=== PATIENT | male | born 1965 | race Caucasian/White ===

== ENCOUNTER 2019-12-28 10:39 | Emergency (ER) | payer SELFPAY ==
[2019-12-28] MEDS ORDERED: Bacitracin Oint 1 GM U/D Packet TOP ONE (10:42)
[2019-12-28] MEDS ORDERED: Diphtheria,Pertussis(Acell),Tetanus Vaccine 0.5 ML Syringe IM ONE (10:42)
--- NOTE | 2019-12-28 10:52 | EDM.PDOC ---
ED HPI GENERAL MEDICAL PROBLEM - General Chief Complaint: Laceration Stated Complaint: CUT ON L HAND Time Seen by Provider: 12/28/19 10:41 Source of Information: Reports: Patient History Limitations: Reports: No Limitations - History of Present Illness INITIAL COMMENTS - FREE TEXT/NARRATIVE: HISTORY AND PHYSICAL: History of present illness: Patient is a 54-year-old male who presents to the emergency room with complaints of a laceration to the left palm near the base of his thumb. He states he was using a knife when it slipped resulting in the laceration. 3 days ago he did have another laceration which he glued that is near the base of his fifth digit. He is unsure of his last tetanus update. Offers no systemic complaints. Review of systems: As per history of present illness and below otherwise all systems reviewed and negative. Past medical history: As per history of present illness and as reviewed below otherwise noncontributory. Surgical history: As per history of present illness and as reviewed below otherwise noncontributory. Social history: See social history for further information Family history: As per history of present illness and as reviewed below otherwise noncontributory. Physical exam: General: Well-developed and well-nourished 54-year-old male. Alert and oriented. Nontoxic-appearing and in no acute distress. HEENT: Atraumatic, normocephalic, pupils equal and reactive bilaterally, negative for conjunctival pallor or scleral icterus, mucous membranes moist, TMs normal bilaterally, throat clear, neck supple, nontender, trachea midline. No drooling or trismus noted. No meningeal signs. No hot potato voice noted. Lungs: Clear to auscultation, breath sounds equal bilaterally, chest nontender. Heart: S1S2, regular rate and rhythm without overt murmur Abdomen: Soft, nondistended, nontender. Skin: 2cm "C" shaped laceration to left palm near base of thumb. Otherwise remaining skin is intact, warm, dry. No lesions or rashes noted. Extremities: Atraumatic, moves all extremities per self without difficulty or deficits, negative for cords or calf pain. Neurovascular unremarkable. Neuro: Awake, alert, oriented. Cranial nerves II through XII unremarkable. Cerebellum unremarkable. Motor and sensory unremarkable throughout. Exam nonfocal. Notes: Area was thoroughly cleansed with chlorhexidine and irrigated with wound wash. 1% lidocaine was used to anesthetize the area. 4-0 nylon, #5 interrupted sutures were placed. Tetanus has been updated. Nonstick dressing applied. Supportive care measures were reviewed and discussed. Voices understanding and is agreeable to plan of care. Denies any further questions or concerns at this time. Diagnostics: None Therapeutics: Lidocaine, Bacitracin, Tdap Prescription: None Impression: Laceration Plan: 1. Keep the area clean and dry. Continue to monitor for signs of infection. Sutures to be removed in 7-10 days. 2. Tylenol and/or ibuprofen as needed for pain management. 3. Please follow-up with your primary care provider in the next 1-2 days. Return to the ED as needed and as discussed. Definitive disposition and diagnosis as appropriate pending reevaluation and r lianneiew of above. Left Hand Pain Score (Numeric/FACES): 2 - Related Data Allergies Allergy/AdvReac Type Severity Reaction Status Date / Time No Known Allergies Allergy Verified 12/28/19 10:45 Home Meds: Home Meds . [No Known Home Meds] 12/28/19 [History] ED ROS GENERAL - Review of Systems Review Of Systems: Comprehensive ROS is negative, except as noted in HPI. ED EXAM, SKIN/RASH Exam: See Below (See dictation) ED SKIN PROCEDURES - Laceration/Wound Repair Left hand Appearance: Subcutaneous, Linear Distal NVT: Neuro & Vascular Intact, No Tendon Injury Anesthetic Type: Local Local Anesthesia - Lidocaine (Xylocaine): 1% Plain Local Anesthetic Volume: 4cc Skin Prep: Chlorhexidine (Hibiciens), Saline, Sterile Drape Saline Irrigation (cc's): 50 Exploration/Debridement/Repair: Wound Explored, In a Bloodless Field, Explored to Base, No Foreign Material Found Closed with: Sutures Lac/Wound length In cm: 2 Suture Size: 4-0 # of Sutures: 5 Suture Type: Nylon, Interrupted, Simple Drain Placement: No Sterile Dressing Applied: Provider Tetanus Status Addressed: Yes Complications: No Course - Vital Signs Last Recorded V/S: Last Vital Signs Temp 97.2 F 12/28/19 11:13 Pulse 104 H 12/28/19 11:13 Resp 17 12/28/19 11:13 BP 144/90 H 12/28/19 11:13 Pulse Ox 96 12/28/19 11:13 - Orders/Labs/Meds Orders: Active Orders 24 hr Category Date Time Status Vaccines to be Administered [RC] PER UNIT ROUTINE Care 12/28/19 10:42 Active Meds: Medications Discontinued Medications Generic Name Dose Route Start Last Admin Trade Name Gris PRN Reason Stop Dose Admin Bacitracin 1 dose 12/28/19 10:42 12/28/19 11:07 Bacitracin Oint 1 Gm TOP 12/28/19 10:43 1 dose ONETIME ONE Administration Diphtheria/Tetanus/Acell Pertussis 0.5 ml 12/28/19 10:42 12/28/19 11:07 Adacel IM 12/28/19 10:43 0.5 ml .ONCE ONE Administration Lidocaine HCl Confirm 12/28/19 10:47 12/28/19 10:56 Xylocaine-Mpf 1% Administered 12/28/19 10:48 5 ml Dose Administration 5 ml .ROUTE .STK-MED ONE Departure - Departure Time of Disposition: 14:08 Disposition: Home, Self-Care 01 Clinical Impression: Laceration - Discharge Information Instructions: Laceration Care, Adult, [id number] Referrals: PCP,None [Primary Care Provider] - Forms: ED Department Discharge Additional Instructions: The following information is given to patients seen in the emergency department who are being discharged to home. This information is to outline your options for follow-up care. We provide all patients seen in our emergency department with a follow-up referral. The need for follow-up, as well as the timing and circumstances, are variable depending upon the specifics of your emergency department visit. If you don't have a primary care physician on staff, we will provide you with a referral. We always advise you to contact your personal physician following an emergency department visit to inform them of the circumstance of the visit and for follow-up with them and/or the need for any referrals to a consulting specialist. The emergency department will also refer you to a specialist when appropriate. This referral assures that you have the opportunity for follow-up care with a specialist. All of these measure are taken in an effort to provide you with optimal care, which includes your follow-up. Under all circumstances we always encourage you to contact your private physician who remains a resource for coordinating your care. When calling for follow-up care, please make the office aware that this follow-up is from your recent emergency room visit. If for any reason you are refused follow-up, please contact the [facility] at and asked to speak to the emergency department charge nurse. [facility] [address] [place] [address] [facility] [address] [place] [id number] 1. Keep the area clean and dry. Continue to monitor for signs of infection. Sutures to be removed in 7-10 days. 2. Tylenol and/or ibuprofen as needed for pain management. 3. Please follow-up with your primary care provider in the next 1-2 days. Return to the ED as needed and as discussed. Sepsis Event Note (ED) - Focused Exam Vital Signs: Vital Signs Temp Pulse Resp BP Pulse Ox 12/28/19 11:13 97.2 F 104 H 17 144/90 H 96 12/28/19 10:42 97.5 F 103 H 18 135/76 96 - My Orders Last 24 Hours: My Active Orders 12/28/19 10:42 Vaccines to be Administered [RC] PER UNIT ROUTINE - Assessment/Plan Last 24 Hours: My Active Orders 12/28/19 10:42 Vaccines to be Administered [RC] PER UNIT ROUTINE
== END 2019-12-28 11:13 | disposition home or self-care (01) ==
LOC: MW.ED 10:39
DX: S61.412A Laceration without foreign body of left hand, initial encounter (principal); Z23 Encounter for immunization; W26.0XXA Contact with knife, initial encounter
CPT/HCPCS: 12001; 90471; 90715; 99282; J2001

== ENCOUNTER 2021-02-05 21:44 | Emergency (ER) | payer SELFPAY ==
[2021-02-05] MEDS ORDERED: Sodium Chloride 0.9% 10 ML Syringe FLUSH PRN (22:59)
[2021-02-05] MEDS ORDERED: Sodium Chloride 0.9% 2.5 ML Syringe FLUSH PRN (22:59)
[2021-02-05] MEDS ORDERED: Lactated Ringers 1,000 ML IV ONE (22:59)
[2021-02-05] MEDS ORDERED: Ampicillin/Sulbactam Na 3 GM in Sodium Chloride 0.9% 100 ML IV ONE (23:00)
[2021-02-05] MEDS ORDERED: Morphine 4 MG/ML Syringe IVPUSH STA (23:01)
[2021-02-05] MEDS ORDERED: Lidocaine 2% Viscous Solution 100 ML Bottle PO ONE ×2 (23:02→23:39)
--- NOTE | 2021-02-05 23:04 | EDM.PDOC ---
ED HPI GENERAL MEDICAL PROBLEM - General Chief Complaint: ENT Problem Stated Complaint: TOOTHACHE Time Seen by Provider: 02/05/21 22:55 - History of Present Illness INITIAL COMMENTS - FREE TEXT/NARRATIVE: Patient presents complaining of left facial swelling. Patient states been there for about 2 days in duration. He has pain to the right front upper tooth. Moderate. There is no fever. Patient denies any history of diabetes. No exacerbating or alleviating factors Right Upper Jaw Pain Score (Numeric/FACES): 7 - Related Data Allergies Allergy/AdvReac Type Severity Reaction Status Date / Time No Known Allergies Allergy Verified 12/28/19 10:45 Home Meds: Home Meds Amoxicillin/Potassium Clav [Augmentin 875-125 Tablet] 1 each PO BID #20 tablet 02/06/21 [Rx] Past Medical History - Past Health History Medical/Surgical History: Denies Medical/Surgical History Other Musculoskeletal History: broken R wrist, hemilamectomy Psychiatric History: Reports: Anxiety, Depression, Panic Attack - Infectious Disease History Infectious Disease History: Reports: None, C-Difficile Social & Family History - Family History Family Medical History: No Pertinent Family History - Tobacco Use Tobacco Use Status *Q: Current Every Day Tobacco User Years of Tobacco use: 40 Packs/Tins Daily: 0.5 - Caffeine Use Caffeine Use: Reports: Coffee - Recreational Drug Use Recreational Drug Use: Yes Recreational Drug Type: Reports: Marijuana/Hashish ED ROS GENERAL - Review of Systems Review Of Systems: See Below Constitutional: Denies: Fever, Chills HEENT: Reports: Other (dEntal pain) Respiratory: Denies: Shortness of Breath Skin: Denies: Rash Neurological: Reports: Headache ED EXAM, GENERAL - Physical Exam Exam: See Below Free Text/Narrative:: CONSTITUTIONAL: well appearing in no acute distress SKIN: dry, and intact without rash HENT: Patient with extensive dental caries and loss of tooth. Along the superior rim there is fluctuance consistent with dental abscess NECK: normal range of motion PULMONARY: normal chest rise and fall, no respiratory distress or stridor NEUROLOGIC: normal speech, moves all extremities, grossly non-focal MUSCULOSKELETAL: no gross deformities, atraumatic PSYCHIATRIC: normal mood and affect ED GENERAL MEDICAL PROCEDURES - Additional/Other Procedure(s) Other (Free Text) Procedure(s): I&D of dental abscess. The area of fluctuance to the right upper lateral incisor was anesthetized with viscous lidocaine. An 11 blade was used to make a single stab incision with blood and purulent return. Patient tolerated the procedure well without complications Course - Vital Signs Text/Narrative:: Differential diagnosis: Facial cellulitis, facial abscess, dental abscess, other Patient presents as outlined above. Patient has evidence of dental abscess with surrounding facial cellulitis. I&D performed in the ED. 1 dose of parenteral antibiotics given and patient sent home on Augmentin with reevaluation in 1 to 2 days to ensure that there is significant improvement after which time tooth can be extracted by dentistry Last Recorded V/S: Last Vital Signs Temp 37.4 C 02/05/21 22:43 Pulse 105 H 02/05/21 22:43 Resp 20 02/05/21 22:43 BP 141/92 H 02/05/21 22:43 Pulse Ox 98 02/05/21 22:43 - Orders/Labs/Meds Orders: Active Orders 24 hr Category Date Time Status Saline Lock Insert [OM.PC] Stat Oth 02/05/21 22:59 Ordered Labs: Laboratory Tests 02/05/21 02/05/21 Range/Units 23:12 23:12 WBC 11.58 H (4.0-11.0) K/uL RBC 4.65 (4.50-5.90) M/uL Hgb 15.2 (13.0-17.0) g/dL Hct 42.5 (38.0-50.0) % MCV 91.4 (80.0-98.0) fL MCH 32.7 H (27.0-32.0) pg MCHC 35.8 (31.0-37.0) g/dL RDW Std Deviation 42.3 (28.0-62.0) fl RDW Coeff of Ricardo 13 (11.0-15.0) % Plt Count 282 (150-400) K/uL MPV 10.80 (7.40-12.00) fL Neut % (Auto) 77.1 (48.0-80.0) % Lymph % (Auto) 13.0 L (16.0-40.0) % Sac % (Auto) 8.8 (0.0-15.0) % Eos % (Auto) 0.9 (0.0-7.0) % Baso % (Auto) 0.2 (0.0-1.5) % Neut # (Auto) 8.9 H (1.4-5.7) K/uL Lymph # (Auto) 1.5 (0.6-2.4) K/uL Sac # (Auto) 1.0 H (0.0-0.8) K/uL Eos # (Auto) 0.1 (0.0-0.7) K/uL Baso # (Auto) 0.0 (0.0-0.1) K/uL Nucleated RBC % 0.0 /100WBC Nucleated RBCs # 0 K/uL Sodium 135 L (136-148) mmol/L Potassium 4.1 (3.5-5.1) mmol/L Chloride 101 (98-107) mmol/L Carbon Dioxide 26.4 (21.0-32.0) mmol/L BUN 9 (7.0-18.0) mg/dL Creatinine 1.0 (0.8-1.3) mg/dL Est Cr Clr Drug Dosing 73.99 mL/min Estimated GFR (MDRD) > 60.0 ml/min Glucose 116 H (74-106) mg/dL Calcium 8.7 (8.5-10.1) mg/dL Total Bilirubin 0.8 (0.2-1.0) mg/dL AST 17 (15-37) IU/L ALT 15 (14-63) IU/L Alkaline Phosphatase 86 (46-116) U/L Total Protein 7.6 (6.4-8.2) g/dL Albumin 3.5 (3.4-5.0) g/dL Globulin 4.1 H (2.6-4.0) g/dL Albumin/Globulin Ratio 0.9 (0.9-1.6) Meds: Medications Discontinued Medications Generic Name Dose Route Start Last Admin Trade Name Freq PRN Reason Stop Dose Admin Lactated Ringer's 1,000 mls @ 999 mls/hr 02/05/21 22:59 02/05/21 23:11 Ringers, Lactated IV 02/05/21 23:59 999 mls/hr .BOLUS ONE Administration Ampicillin Sodium/Sulbactam 100 mls @ 200 mls/hr 02/05/21 23:00 02/05/21 23:19 Sodium 3 gm/ Sodium Chloride IV 02/05/21 23:29 200 mls/hr ONETIME ONE Administration Iopamidol 100 ml 02/05/21 23:43 02/06/21 00:09 Iopamidol 755 Mg/Ml 100 Ml Bottle IVPUSH 02/05/21 23:44 100 ml ONETIME ONE Administration Lidocaine HCl 20 ml 02/05/21 23:02 02/05/21 23:40 Lidocaine 2% Viscous Solution 100 Ml Bottle PO 02/05/21 23:03 Not Given ONETIME ONE Lidocaine HCl 20 ml 02/05/21 23:39 02/05/21 23:41 Lidocaine 2% Viscous Solution 100 Ml Bottle PO 02/05/21 23:40 Not Given ONETIME ONE Lidocaine HCl 15 ml 02/05/21 23:41 02/05/21 23:46 Lidocaine 2% Viscous Solution 15 Ml Cup PO 02/05/21 23:42 15 ml ONETIME ONE Administration Morphine Sulfate 4 mg 02/05/21 23:01 02/05/21 23:11 Morphine 4 Mg/Ml Syringe IVPUSH 02/05/21 23:02 4 mg NOW STA Administration Sodium Chloride 10 ml 02/05/21 22:59 Sodium Chloride 0.9% 10 Ml Syringe FLUSH ASDIRECTED PRN Keep Vein Open Sodium Chloride 2.5 ml 02/05/21 22:59 Sodium Chloride 0.9% 2.5 Ml Syringe FLUSH ASDIRECTED PRN Keep Vein Open Departure - Departure Time of Disposition: 01:22 Disposition: Home, Self-Care 01 Condition: Good Clinical Impression: Dental abscess - Discharge Information Prescriptions: Amoxicillin/Potassium Clav [Augmentin 875-125 Tablet] 1 each PO BID #20 tablet Instructions: Dental Abscess Referrals: PCP,None [Primary Care Provider] - Forms: ED Department Discharge Additional Instructions: Return in 1 to 2 days for reevaluation. Return sooner if there is any change or worsening condition. Take antibiotics as prescribed Sepsis Event Note (ED) - Evaluation Sepsis Screening Result: No Definite Risk - Focused Exam Vital Signs: Vital Signs Temp Pulse Resp BP Pulse Ox 02/05/21 22:43 37.4 C 105 H 20 141/92 H 98 - My Orders Last 24 Hours: My Active Orders 02/05/21 22:59 Saline Lock Insert [OM.PC] Stat - Assessment/Plan Last 24 Hours: My Active Orders 02/05/21 22:59 Saline Lock Insert [OM.PC] Stat
[2021-02-05 23:32] LABS: BLOOD UREA NITROGEN,BUN 9 mg/dL (7.0-18.0); CARBON DIOXIDE,CO2 26.4 mmol/L (21.0-32.0); CHLORIDE,CL 101 mmol/L (98-107); GLUCOSE RANDOM 116 mg/dL (74-106); POTASSIUM,K 4.1 mmol/L (3.5-5.1); SODIUM,NA 135 mmol/L (136-148)
[2021-02-05] MEDS ORDERED: Lidocaine 2% Viscous Solution 15 ML Cup PO ONE (23:41)
[2021-02-05] MEDS ORDERED: Iopamidol 755 Mg/ML 100 ML Bottle IVPUSH ONE (23:43)
--- NOTE | 2021-02-06 00:34 | CT ---
INDICATION Right-sided facial swelling. TECHNIQUE CT images were acquired through the face following intravenous contrast. COMPARISON None. FINDINGS Dental caries and periapical lucencies involving multiple maxillary teeth. Periapical lucency involving tooth #7 associated with marked thinning/dehiscence of the adjacent superior alveolar ridge labial cortex (series 202, image 44). Shallow peripherally enhancing hypoattenuation in the overlying right premaxillary soft tissues measuring 9 x 2 x 3 mm (TR/AP/CC, series 201 image 45), most compatible with a small abscess. Extensive inflammatory stranding and soft tissue swelling involving the right premaxillary region with extension inferiorly overlying the right hemimandible. The globes, extraocular muscles, and optic nerve sheath complexes are symmetric. No retrobulbar hematoma or stranding. Hypoplastic right maxillary sinus. Mild paranasal sinus mucosal thickening. Small retention cysts or polyps the left maxillary sinus. Trace right mastoid fluid. IMPRESSION 1. Periapical lucency involving tooth #7 associated with marked thinning/dehiscence of the superior alveolar ridge labial cortex. Small peripherally enhancing collection in the adjacent right premaxillary region is most compatible with abscess. There is extensive inflammatory stranding in the right premaxillary region and extending inferiorly overlying the right hemimandible. 2. Advanced multifocal dental disease. Please note that all CT scans at this facility use dose modulation, iterative reconstruction, and/or weight-based dosing when appropriate to reduce radiation dose to as low as reasonably achievable. Dictated by Mark Aleman MD @ 02/06/2021 12:59:[address] Mark Aleman @ Feb 06 2021 12:59PM
== END 2021-02-06 01:32 | disposition home or self-care (01) ==
LOC: MW.ED 21:44
DX: K04.7 Periapical abscess without sinus (principal); Z72.0 Tobacco use
CPT/HCPCS: 36415; 41800; 70487; 80053; 85025; 96365; 96375; 99284; A9270; J0295; J2270; J7120; Q9967

== ENCOUNTER 2021-10-15 00:12 | Emergency (ER) | payer SELFPAY | END 2021-10-15 00:19 | LOC: MW.ED 00:12 | DX: Z02.89 Encounter for other administrative examinations (principal) | CPT/HCPCS: 99282 ==

== ENCOUNTER 2024-05-11 21:29 | Emergency (ER) | payer MEDICAID ==
[2024-05-11] MEDS: Ketorolac 30 MG/ML SDV IM ONE (22:37)
[2024-05-11] MEDS: Acetaminophen 325 MG Tab PO ONE (22:38)
[2024-05-11] MEDS: Lidocaine 1% 10 ML MDV INJECT ONE (22:49)
[2024-05-11] MEDS: Amoxicillin/Clavulanate K 875-125 MG Tab PO ONE (23:24)
== END 2024-05-11 23:28 ==
LOC: MW.ED 21:29
DX: S01.111A Laceration without foreign body of right eyelid and periocular area, initial encounter (principal); S20.312A Abrasion of left front wall of thorax, initial encounter; K04.7 Periapical abscess without sinus; Z79.2 Long term (current) use of antibiotics; Y04.8XXA Assault by other bodily force, initial encounter
CPT/HCPCS: 12011; 71046; 93005; 96372; 99284; A9270; J1885; J3490

== ENCOUNTER 2025-02-23 08:33 | Day surgery (SDC) | payer MEDICAID ==
[~2025-02-23 08:33] MED LIST: Lactated Ringers 1,000 ML IV SCH; propofoL 500 MG/50 ML 50 ML ONE
[2025-02-23] MEDS: Lactated Ringers 1,000 ML IV SCH (09:00)
[2025-02-23] MEDS ORDERED: Lactated Ringers 1,000 ML IV SCH (10:30)
== END 2025-02-23 11:49 | disposition home or self-care (01) ==
LOC: MW.SDS 08:33
PROVIDERS: ATTEND Surgery
DX: D12.2 Benign neoplasm of ascending colon (principal); F32.A Depression, unspecified; Z88.5 Allergy status to narcotic agent; Z79.899 Other long term (current) drug therapy
CPT/HCPCS: 45380; J2704; J7120; 00811

== ENCOUNTER 2025-04-05 15:36 | Emergency (ER) | payer MEDICAID ==
[2025-04-05] MEDS: Lidocaine 1% with EPINEPHrine 1:200,000 30 ML SDV INJECT ONE (18:18)
== END 2025-04-05 18:20 | disposition home or self-care (01) ==
LOC: MW.ED 15:36
DX: L05.91 Pilonidal cyst without abscess (principal)
CPT/HCPCS: 10060; 99282; A9270; J2004; 99283

== ENCOUNTER 2025-04-08 06:52 | Day surgery (SDC) | payer MEDICAID ==
[2025-04-08] MEDS: Lactated Ringers 1,000 ML IV SCH (07:00)
[2025-04-08] MEDS ORDERED: fentaNYL 100 MCG/2 ML SDV ONE (07:00)
[2025-04-08] MEDS ORDERED: Propofol 200 MG/20 ML SDV ONE (07:00)
[2025-04-08] MEDS ORDERED: Midazolam 1 MG/ML 2 ML SDV ONE (07:01)
[2025-04-08] MEDS ORDERED: Albuterol 0.083% 2.5 MG/3 ML Neb Soln NEB PRN (07:55)
[2025-04-08] MEDS ORDERED: Ondansetron 4 MG/2 ML SDV IVPUSH PRN (07:55)
[2025-04-08] MEDS ORDERED: Naloxone 0.4 MG/ML SDV IVPUSH PRN (07:55)
[2025-04-08] MEDS ORDERED: Dexamethasone 4 MG/ML 5 ML MDV ONE (07:55)
[2025-04-08] MEDS ORDERED: fentaNYL 50 MCG/ML SDV IVPUSH PRN (07:55)
[2025-04-08] MEDS ORDERED: Acetaminophen/HYDROcodone 325-5 MG Tab PO PRN (08:39)
[2025-04-08] MEDS ORDERED: Lactated Ringers 1,000 ML IV SCH (08:45)
== END 2025-04-08 10:45 | disposition home or self-care (01) ==
LOC: MW.SDS 06:52
PROVIDERS: ATTEND Surgery
DX: K61.0 Anal abscess (principal); F17.210 Nicotine dependence, cigarettes, uncomplicated; Z79.899 Other long term (current) drug therapy
CPT/HCPCS: 46050; J0665; J1100; J2003; J2250; J2704; J3010; J7120; J7999; 00300; J2371; J3490